=== PATIENT | male | born 1970 | race Asian ===

== ENCOUNTER 2019-05-28 17:41 | Observation (INO) | payer OTHER ==
--- NOTE | 2019-05-28 18:13 | ER ---
Nurse's Notes [facility] Name: Mehran Groves Age: 48 yrs Sex: Male : 1970 Arrival Date: 05/28/2019 Time: 17:42 Bed 8 Private MD: Diagnosis: Chest pain, unspecified;Essential (primary) hypertension;Elevated white blood cell count Presentation: 05/28 17:54 Presenting complaint: Patient states: left sided chest pain that started after climbing iw stairs, pain was 10/10 at worst, sharp, lasted about 45 min, then turned into a dull ache that lasted about 15 minutes, now feels tightness in left side of chest, rates at 3/10, also was feeling light headed, and noticed his left arm started feeling numb/tingly/weak a short while after the chest pain started at approx 1640. Transition of care: patient was not received from another setting of care. Onset of symptoms was May 28, 2019. Risk Assessment: Do you want to hurt yourself or someone else? Patient reports no desire to harm self or others. Initial Sepsis Screen: Does the patient meet any 2 criteria? No. Patient's initial sepsis screen is negative. Does the patient have a suspected source of infection? No. Patient's initial sepsis screen is negative. Care prior to arrival: None. 17:54 Method Of Arrival: Wheelchair 17:54 Acuity: YAKELIN 2 iw Triage Assessment: 18:00 General: Appears in no apparent distress. comfortable, Behavior is calm, cooperative, bp appropriate for age. Pain: Complains of pain in chest. EENT: No deficits noted. Neuro: No deficits noted. Cardiovascular: No deficits noted. Respiratory: Airway is patent Respiratory effort is even, unlabored, Respiratory pattern is regular, symmetrical. GI: No signs and/or symptoms were reported involving the gastrointestinal system. : No signs and/or symptoms were reported regarding the genitourinary system. Derm: No deficits noted. Musculoskeletal: No deficits noted. Historical: - Allergies: 18:00 Allopurinol; iw - Home Meds: 18:00 None [Active]; iw - PMHx: 18:00 CLL; iw - PSHx: 18:00 Appendectomy; iw - Immunization history:: Adult Immunizations up to date. - Social history:: Smoking status: Patient/guardian denies using tobacco. - Ebola Screening: : Patient negative for fever greater than or equal to 101.5 degrees Fahrenheit, and additional compatible Ebola Virus Disease symptoms Patient denies exposure to infectious person Patient denies travel to an Ebola-affected area in the 21 days before illness onset No symptoms or risks identified at this time. - Family history:: not pertinent. Screenin:59 Abuse screen: Denies threats or abuse. Denies injuries from another. Nutritional bp screening: No deficits noted. Tuberculosis screening: No symptoms or risk factors identified. Fall Risk None identified. Assessment: 18:10 General: SEE TRIAGE NOTE. Pain: Pain does not radiate. Pain began 1 day ago. bp Cardiovascular: Rhythm is sinus rhythm. 18:58 Reassessment: PER MD, ADMIT ON HOLD PENDING LAB RESULTS. bp 19:16 Reassessment: Patient and/or family updated on plan of care and expected duration. Pain tr5 level reassessed. Patient is alert, oriented x 3, equal unlabored respirations, skin warm/dry/pink. 20:17 Reassessment: Patient and/or family updated on plan of care and expected duration. Pain tr5 level reassessed. Patient is alert, oriented x 3, equal unlabored respirations, skin warm/dry/pink. Vital Signs: 18:00 BP 137 / 99; Pulse 86; Resp 16; Temp 98.2; Pulse Ox 99% on R/A; Weight 72.57 kg; Height iw 5 ft. 9 in. (175.26 cm); Pain 3/10; 19:18 BP 144 / 93; Pulse 85; Resp 16; Pulse Ox 99% on R/A; tr5 18:00 Body Mass Index 23.63 (72.57 kg, 175.26 cm) NIH Stroke Scale Scores: 18:06 NIHSS Score: 0 [facility] ED Course: 17:42 Patient arrived in ED. as 17:53 Michel Claudio MD is Attending Physician. bebeto 17:56 EKG done, by outside plant technician. reviewed by Michel Claudio MD. 3 17:58 Triage completed. iw 18:00 Arm band placed on. iw 18:11 Delfino Mcgregor, RN is Primary Nurse. bp 18:11 Viri Pascal MD is Hospitalizing Provider. bebeto 18:24 XRAY Chest (1 view) In Process Unspecified. EDMS 18:26 Initial lab(s) drawn, by me, sent to lab. Inserted saline lock: 20 gauge in right em1 antecubital area, using aseptic technique. Blood collected. Missed attempt(s): 20 gauge in right forearm. Bleeding controlled, band aid applied, catheter tip intact. 18:59 Patient has correct armband on for positive identification. Bed in low position. Call bp light in reach. Side rails up X2. Adult w/ patient. motorized squad lieutenant on. Pulse ox on. NIBP on. 19:16 Awaiting lab results. tr5 19:16 Report received from Delfino RAYGOZA. motorized squad lieutenant on. Pulse ox on. NIBP on. Door closed. tr5 Noise minimized. Assisted to bathroom. 20:17 transfer transportation to receiving facility. tr5 20:17 No provider procedures requiring assistance completed. Patient admitted, IV remains in tr5 place. Patient maintains SpO2 saturation greater than 95% on room air. 20:17 Report given to Michelle RAYGOZA. tr5 Administered Medications: 18:35 Drug: NS 0.9% 1000 ml Route: IV; Rate: 125 ml/hr; Site: right antecubital; bp 19:02 Follow up: IV Status: Infusion continued upon admission bp 18:35 Drug: Aspirin 162 mg Route: PO; bp 19:02 Follow up: Response: No adverse reaction bp 18:35 Drug: Lopressor (metoprolol TARTRATE) 50 mg Route: PO; bp 19:03 Follow up: Response: No adverse reaction bp 20:11 Drug: Lovenox 1 mg/kg Route: Sub-Q; Site: abdomen; tr5 20:29 Follow up: Response: No adverse reaction tr5 20:11 Drug: Pepcid 20 mg Route: IVP; Site: right antecubital; tr5 20:29 Follow up: Response: Marked relief of symptoms tr5 Outcome: 18:12 Decision to Hospitalize by Provider. bebeto 20:17 Admitted to Med/surg accompanied by tech, via wheelchair, with chart, Report called to tr5 Michelle RAYGOZA 20:17 Condition: stable 20:17 Instructed on the need for admit. 20:55 Patient left the ED. tr5 NIH Stroke Scale - NIH Stroke Score Date: 05/28/2019 Time: 18:06 Total Score = 0 1a. Level of Consciousness (LOC) - 0(Alert) 1b. Level of Consciousness (LOC) (Year \T\ Age) - 0(Both) 1c. LOC Commands (Open \T\ Closes Eyes/Obstetrician Gynecologist) - 0(Both) 2. Best Gaze (Lateral Gaze Paresis) - 0(Normal) 3. Visual Field Loss - 0(No visual loss) 4. Facial Palsy - 0(Normal) 5a. Left Arm: Motor (10-second hold) - 0(No drift) 5b. Right Arm: Motor (10-second hold) - 0(No drift) 6a. Left Leg: Motor (5-second hold - always test supine) - 0(No drift) 6b. Right Leg: Motor (5-second hold - always test supine) - 0(No drift) 7. Limb Ataxia (finger/nose \T\ heel/renteria - test with eyes open) - 0(Absent) 8. Sensory Loss (pinprick arms/legs/face) - 0(Normal) 9. Best Language: Aphasia (description/naming/reading) - 0(No aphasia) 10. Dysarthria (speech clarity - read or repeat words) - 0(Normal) 11. Extinction and Inattention (visual/tactile/auditory/spatial/personal) - 0(No abnormality) Initials: bebeto Signatures: Dispatcher [employer] EDMichel Gilbert MD MD cha Martinez, Amelia as Williams, Irene, RN Miki Davis em1 Delfino Mcgregor, Francia Cazares RN 3 Filiberto Mcdermott RN RN tr5
--- NOTE | 2019-05-28 18:14 | EDPHYS ---
Physician Documentation [facility] Name: Mehran Groves Age: 48 yrs Sex: Male : 1970 Arrival Date: 05/28/2019 Time: 17:42 Bed 8 Private MD: ED Physician Michel Claudio HPI: 05/28 18:06 This 48 yrs old Male presents to ER via Wheelchair with complaints of Chest Pain. bebeto 18:06 The patient or guardian reports chest pain that is located primarily in the substernal bebeto area. Onset: just prior to arrival. The pain radiates to the left arm. Associated signs and symptoms: The patient has no apparent associated signs or symptoms. The chest pain is described as a pressure. Duration: The patient or guardian reports a single episode, that is now resolved. Severity of pain: At its worst the pain was mild moderate in the emergency department the pain has resolved. The patient has experienced similar episodes in the past, a few times. Historical: - Allergies: 18:00 Allopurinol; iw - Home Meds: 18:00 None [Active]; iw - PMHx: 18:00 CLL; iw - PSHx: 18:00 Appendectomy; iw - Immunization history:: Adult Immunizations up to date. - Social history:: Smoking status: Patient/guardian denies using tobacco. - Ebola Screening: : Patient negative for fever greater than or equal to 101.5 degrees Fahrenheit, and additional compatible Ebola Virus Disease symptoms Patient denies exposure to infectious person Patient denies travel to an Ebola-affected area in the 21 days before illness onset No symptoms or risks identified at this time. - Family history:: not pertinent. ROS: 18:06 Constitutional: Negative for fever, chills, and weight loss, Eyes: Negative for injury, bebeto pain, redness, and discharge, ENT: Negative for injury, pain, and discharge, Neck: Negative for injury, pain, and swelling, Respiratory: Negative for shortness of breath, cough, wheezing, and pleuritic chest pain, Abdomen/GI: Negative for abdominal pain, nausea, vomiting, diarrhea, and constipation, Back: Negative for injury and pain, : Negative for injury, bleeding, discharge, and swelling, MS/Extremity: Negative for injury and deformity, Skin: Negative for injury, rash, and discoloration, Neuro: Negative for headache, weakness, numbness, tingling, and seizure, Psych: Negative for depression, anxiety, suicide ideation, homicidal ideation, and hallucinations, Allergy/Immunology: Negative for hives, rash, and allergies, Endocrine: Negative for neck swelling, polydipsia, polyuria, polyphagia, and marked weight changes, Hematologic/Lymphatic: Negative for swollen nodes, abnormal bleeding, and unusual bruising. 18:06 Cardiovascular: Positive for chest pain, of the chest. Exam: 18:06 Constitutional: This is a well developed, well nourished patient who is awake, alert, bebeto and in no acute distress. Head/Face: Normocephalic, atraumatic. Eyes: Pupils equal round and reactive to light, extra-ocular motions intact. Lids and lashes normal. Conjunctiva and sclera are non-icteric and not injected. Cornea within normal limits. Periorbital areas with no swelling, redness, or edema. ENT: Nares patent. No nasal discharge, no septal abnormalities noted. Tympanic membranes are normal and external auditory canals are clear. Oropharynx with no redness, swelling, or masses, exudates, or evidence of obstruction, uvula midline. Mucous membranes moist. Neck: Trachea midline, no thyromegaly or masses palpated, and no cervical lymphadenopathy. Supple, full range of motion without nuchal rigidity, or vertebral point tenderness. No Meningismus. Chest/axilla: Normal chest wall appearance and motion. Nontender with no deformity. No lesions are appreciated. Cardiovascular: Regular rate and rhythm with a normal S1 and S2. No gallops, murmurs, or rubs. Normal PMI, no JVD. No pulse deficits. Respiratory: Lungs have equal breath sounds bilaterally, clear to auscultation and percussion. No rales, rhonchi or wheezes noted. No increased work of breathing, no retractions or nasal flaring. Abdomen/GI: Soft, non-tender, with normal bowel sounds. No distension or tympany. No guarding or rebound. No evidence of tenderness throughout. Back: No spinal tenderness. No costovertebral tenderness. Full range of motion. Male : Normal genitalia with no discharge or lesions. Skin: Warm, dry with normal turgor. Normal color with no rashes, no lesions, and no evidence of cellulitis. MS/ Extremity: Pulses equal, no cyanosis. Neurovascular intact. Full, normal range of motion. Neuro: Awake and alert, GCS 15, oriented to person, place, time, and situation. Cranial nerves II-XII grossly intact. Motor strength 5/5 in all extremities. Sensory grossly intact. Cerebellar exam normal. Normal gait. Psych: Awake, alert, with orientation to person, place and time. Behavior, mood, and affect are within normal limits. 18:06 Musculoskeletal/extremity: DVT Exam: No signs of deep vein thrombosis. no pain, no swelling, no tenderness, negative Homans' sign noted on exam, no appreciated bluish discoloration, no erythema, no increased warmth. Vital Signs: 18:00 BP 137 / 99; Pulse 86; Resp 16; Temp 98.2; Pulse Ox 99% on R/A; Weight 72.57 kg; Height iw 5 ft. 9 in. (175.26 cm); Pain 3/10; 19:18 BP 144 / 93; Pulse 85; Resp 16; Pulse Ox 99% on R/A; tr5 18:00 Body Mass Index 23.63 (72.57 kg, 175.26 cm) NIH Stroke Scale Scores: 18:06 NIHSS Score: 0 bebeto MDM: 17:53 Patient medically screened. [facility] 18:09 Data reviewed: vital signs, nurses notes, lab test result(s), EKG, radiologic studies, bebeto plain films. 05/28 18:05 Order name: Basic Metabolic Panel; Complete Time: 19:04 [facility] 05/28 18:05 Order name: CBC with Diff [facility] 05/28 18:05 Order name: LFT's; Complete Time: 19:04 [facility] 05/28 18:05 Order name: Magnesium; Complete Time: 19:04 [facility] 05/28 18:05 Order name: NT PRO-BNP; Complete Time: 19:04 [facility] 05/28 18:05 Order name: PT-INR [facility] 05/28 18:05 Order name: Troponin (emerg Dept Use Only); Complete Time: 19:04 [facility] 05/28 18:05 Order name: Lipase; Complete Time: 19:04 [facility] 05/28 18:36 Order name: Lipid Profile [facility] 05/28 18:36 Order name: Lipid Profile [facility] 05/28 18:36 Order name: Troponin I [facility] 05/28 18:36 Order name: Troponin I [facility] 05/28 18:37 Order name: Troponin I [facility] 05/28 19:31 Order name: Urine Dipstick--Ancillary (enter results) 2 05/28 18:05 Order name: XRAY Chest (1 view); Complete Time: 19:04 [facility] 05/28 18:05 Order name: EKG; Complete Time: 18:09 [facility] 05/28 18:05 Order name: Cardiac monitoring; Complete Time: 18:32 [facility] 05/28 18:05 Order name: EKG - Nurse/Tech; Complete Time: 18:25 [facility] 05/28 18:37 Order name: CONS Physician Consult [facility] 05/28 18:37 Order name: Heart Healthy [facility] 05/28 18:37 Order name: Echo with Doppler [facility] 05/28 18:37 Order name: EKG Electrocardiogram [facility] 05/28 18:37 Order name: EKG Electrocardiogram [facility] 05/28 19:35 Order name: Urine Dipstick-Ancillary [facility] 05/28 19:47 Order name: Manual Differential [facility] 05/28 18:05 Order name: IV Saline Lock; Complete Time: 18:25 [facility] 05/28 18:05 Order name: Labs collected and sent; Complete Time: 18:25 [facility] 05/28 18:05 Order name: O2 Per Protocol; Complete Time: 18:32 [facility] 05/28 18:05 Order name: O2 Sat Monitoring; Complete Time: 18:32 [facility] 05/28 18:05 Order name: Urine Dipstick-Ancillary (obtain specimen); Complete Time: 19:18 [facility] Administered Medications: 18:35 Drug: NS 0.9% 1000 ml Route: IV; Rate: 125 ml/hr; Site: right antecubital; bp 19:02 Follow up: IV Status: Infusion continued upon admission bp 18:35 Drug: Aspirin 162 mg Route: PO; bp 19:02 Follow up: Response: No adverse reaction bp 18:35 Drug: Lopressor (metoprolol TARTRATE) 50 mg Route: PO; bp 19:03 Follow up: Response: No adverse reaction bp 20:11 Drug: Lovenox 1 mg/kg Route: Sub-Q; Site: abdomen; tr5 20:29 Follow up: Response: No adverse reaction tr5 20:11 Drug: Pepcid 20 mg Route: IVP; Site: right antecubital; tr5 20:29 Follow up: Response: Marked relief of symptoms tr5 Disposition: 05/28/19 18:12 Hospitalization ordered by Viri Pascal for Observation. Preliminary diagnosis are Chest pain, unspecified, Essential (primary) hypertension, Elevated white blood cell count. - Bed requested for Telemetry/MedSurg (observation). - Status is Observation. tr5 - Condition is Stable. - Problem is new. - Symptoms have improved. UTI on Admission? No NIH Stroke Scale - NIH Stroke Score Date: 05/28/2019 Time: 18:06 Total Score = 0 1a. Level of Consciousness (LOC) - 0(Alert) 1b. Level of Consciousness (LOC) (Year \T\ Age) - 0(Both) 1c. LOC Commands (Open \T\ Closes Eyes/Government Relations Analyst) - 0(Both) 2. Best Gaze (Lateral Gaze Paresis) - 0(Normal) 3. Visual Field Loss - 0(No visual loss) 4. Facial Palsy - 0(Normal) 5a. Left Arm: Motor (10-second hold) - 0(No drift) 5b. Right Arm: Motor (10-second hold) - 0(No drift) 6a. Left Leg: Motor (5-second hold - always test supine) - 0(No drift) 6b. Right Leg: Motor (5-second hold - always test supine) - 0(No drift) 7. Limb Ataxia (finger/nose \T\ heel/renteria - test with eyes open) - 0(Absent) 8. Sensory Loss (pinprick arms/legs/face) - 0(Normal) 9. Best Language: Aphasia (description/naming/reading) - 0(No aphasia) 10. Dysarthria (speech clarity - read or repeat words) - 0(Normal) 11. Extinction and Inattention (visual/tactile/auditory/spatial/personal) - 0(No abnormality) Initials: bebeto Signatures: Dispatcher [employer] EDMS Marielena Mann Corey, MD MD cha Williams, Irene, RN RN iw Peltier, Brian, RN RN bp Rodriguez, Tommie, RN RN tr5 Corrections: (The following items were deleted from the chart) 18:50 18:12 Hospitalization Ordered by Viri Pascal MD for Observation. Preliminary bd diagnosis is Chest pain, unspecified; Essential (primary) hypertension. Bed requested for Telemetry/MedSurg (observation). Status is Observation. Condition is Stable. Problem is new. Symptoms have improved. UTI on Admission? No. bebeto 19:17 18:50 05/28/2019 18:12 Hospitalization Ordered by Viri Pascal MD for bebeto Observation. Preliminary diagnosis is Chest pain, unspecified; Essential (primary) hypertension. Bed requested for Telemetry/MedSurg (observation). Status is Observation. Condition is Stable. Problem is new. Symptoms have improved. UTI on Admission? No. bd 20:55 19:17 05/28/2019 18:12 Hospitalization Ordered by Viri Pascal MD for tr5 Observation. Preliminary diagnosis is Chest pain, unspecified; Essential (primary) hypertension; Elevated white blood cell count. Bed requested for Telemetry/MedSurg (observation). Status is Observation. Condition is Stable. Problem is new. Symptoms have improved. UTI on Admission? No. bebeto
[2019-05-28] MEDS ORDERED: ACETAMINOPHEN 500 MG TAB PO PRN (18:30)
[2019-05-28] MEDS ORDERED: ALPRAZOLAM 0.25 MG TABLET PO PRN (18:30)
[2019-05-28] MEDS ORDERED: MORPHINE 4 MG/ML SYR IV PRN (18:30)
[2019-05-28 18:32] LABS: Basophils % 0.6 % (0-1.3); Hematocrit 47.5 % (39.6-49.0); MPV 9.7 fL (7.6-11.3); RBC Red Blood Cell Count 5.46 M/uL (4.33-5.43)
--- NOTE | 2019-05-28 18:32 | RAD REPORT ---
EXAM DESCRIPTION: Jake Single View05/28/2019 6:24 pm CLINICAL HISTORY: Chest pain COMPARISON: none FINDINGS: The lungs appear clear of acute infiltrate. The heart is normal size IMPRESSION: No acute abnormalities displayed
[2019-05-28 18:54] LABS: ALT/SGPT 43 U/L (12-78); AST/SGOT 14 U/L (15-37); Albumin 4.6 g/dL (3.4-5.0); Alkaline Phosphatase 64 U/L (45-117); BUN Blood Urea Nitrogen 20 mg/dL (7-18); Bicarbonate 29 mmol/L (21-32); Bilirubin Direct 0.2 mg/dL (0-0.2); Bilirubin Total 0.7 mg/dL (0.2-1.0); Glucose Level 95 mg/dL (74-106); Lipase 127 U/L (73-393); Magnesium 2.2 mg/dL (1.8-2.4); NT PRO-BNP 17 pg/mL (<125); Potassium 4.2 mmol/L (3.5-5.1); Protein, Total 7.3 g/dL (6.4-8.2); Sodium Level 142 mmol/L (136-145); Troponin (Emerg Dept Use Only) < 0.02 ng/mL (0.0-0.045)
[2019-05-28] MEDS ORDERED: ASPIRIN 81 MG CHEWABLE TABLET ONE (18:56)
[2019-05-28] MEDS ORDERED: NA CHLORIDE 0.9% 1,000 ML ONE (18:56)
[2019-05-28 19:25] LABS: Protime INR 0.96
[2019-05-28 19:34] LABS: Urine Blood NEGATIVE (NEG); Urine Glucose NEGATIVE (NEG); Urine Protein NEGATIVE (NEG); Urine Specific Gravity 1.025 (1.005-1.030)
[2019-05-28 19:44] LABS: Platelet Estimate DECR
[2019-05-28 19:46] LABS: Blood Morphology Comment NOT SEEN (NOT SEEN)
[2019-05-28] MEDS ORDERED: ENOXAPARIN 80 MG/0.8 ML SQ ONE (20:19)
[2019-05-28] MEDS ORDERED: FAMOTIDINE 20 MG/2 ML VIAL IV ONE (20:20)
[2019-05-28] MEDS: METOPROLOL TAR 50 MG TAB PO SCH (21:00)
[2019-05-29] MEDS: METOPROLOL TAR 50 MG TAB PO SCH (08:32)
[2019-05-29] MEDS ORDERED: ASPIRIN EC 81 MG TAB PO SCH (09:00)
[2019-05-29] MEDS ORDERED: ENOXAPARIN 40 MG/0.4 ML SQ SCH (09:00)
--- NOTE | 2019-05-29 11:58 | P.SSS ---
Patient History Date of Service: 05/29/19 History of Present Illness: This is a 48-year-old male with history of CLL, history of Pia's syndrome, admitted for chest pain rule out. Patient stated that there was a sharp pain that was started while walking up the stairs the day of admission. Described it as a dull pain that lasted for 15-20 min. Associated with left arm weakness. He states that he has a history of CLL, that was in remission. He is status post chemotherapy, not over 1 year ago. He says that he recently started oncologist 1-2 months ago and states that they think his CLL is returning. He will continue follow up with his oncologist in [place]. Cardiology was consulted for chest pain. His troponins remained negative x2. His chest x-ray was without any acute abnormalities. He states that he did see a sample maker hand 3 months ago in [place], with a negative exercise stress test at that time. Powertrain Design Engineer here cleared patient for discharge today and he will have an outpatient nuclear stress test in cardiology office. Per cardiology, they will have this set up this week prior to patient returning to [place]. Prior to discharge, patient was hemodynamically stable, his chest pain had resolved and he was in no acute distress. His diagnosis and treatment plan were explained to him, all questions were answered and patient verbalized understanding. Allergies allopurinol Adverse Reaction (Verified 05/28/19 21:20) Hives/Rash Home medications list reviewed: Yes Home Medications: NK [No Home Meds] 05/28/19 - Past Medical/Surgical History Has patient received pneumonia vaccine in the past: Yes Diabetic: No -: Leukemia -: Appendectomy - Family History Father History Unknown: Yes Mother -: Diabetes - Social History Smoking Status: Never smoker Alcohol use: No CD- Drugs: No Caffeine use: No Place of Residence: Home Review of Systems 10-point ROS is otherwise unremarkable Physical Examination - Vital Signs Temperature: 97.8 F Blood Pressure: 114/73 Pulse: 74 Respirations: 14 Pulse Ox (%): 96 - Physical Exam General: Alert, In no apparent distress, Oriented x3 HEENT: Atraumatic, PERRLA, Mucous membr. moist/pink, EOMI, Sclerae nonicteric Neck: Supple, 2+ carotid pulse no bruit, No LAD, Without JVD or thyroid abnormality Respiratory: Clear to auscultation bilaterally, Normal air movement Cardiovascular: Regular rate/rhythm, Normal S1 S2 Gastrointestinal: Normal bowel sounds, No tenderness Musculoskeletal: No tenderness Integumentary: No rashes Neurological: Normal gait, Normal speech, Normal strength at 5/5 x4 extr, Normal tone, Normal affect Lymphatics: No axilla or inguinal lymphadenopathy - Studies Laboratory Data (last 24 hrs) 05/28/19 18:20: PT 11.4, INR 0.96 05/28/19 18:20: WBC 17.2 H, Hgb 16.0, Hct 47.5, Plt Count 136 L 05/28/19 18:20: Sodium 142, Potassium 4.2, BUN 20 H, Creatinine 1.10, Glucose 95 , Magnesium 2.2, Total Bilirubin 0.7, AST 14 L, ALT 43, Alkaline Phosphatase 64 , Lipase 127 Treatment Summary: See HPI - Disposition Discharge Date: 05/29/19 Disposition: ROUTINE DISCHARGE Condition: GOOD Consultations: Cardiology Patient Discharge Instructions: Please follow up with cardiology within this week. Powertrain Design Engineer office will be calling you to set up outpatient testing. Please return to the emergency room for worsening symptoms Diet: AHA Activity: Ad jordin Time Spent Managing Pts Care (In Minutes): 45
--- NOTE | 2019-05-29 13:35 | EKG ---
Test Date: 2019-05-29 Test Time: 08:04:17 Mailing Machine Operator: NAVEEN MEASUREMENT RESULTS: Intervals: Rate: 79 LA: 148 QRSD: 88 QT: 370 QTc: 424 [place] [facility]: P: 69 LA: 148 QRS: 87 T: 45 INTERPRETIVE STATEMENTS: Normal sinus rhythm Normal ECG Compared to ECG 05/28/2019 17:54:08 No significant changes Electronically Signed On 05-29-19 13:34:00 CDT by Scottie Ovalles
--- NOTE | 2019-05-29 13:38 | EKG ---
Test Date: 2019-05-28 Test Time: 17:54:08 Car Installations Supervisor: NAVEEN MEASUREMENT RESULTS: Intervals: Rate: 88 ID: [id number] QRSD: 84 QT: 356 QTc: 430 [place]: P: 60 ID: [id number] QRS: 84 T: 21 INTERPRETIVE STATEMENTS: Normal sinus rhythm Normal ECG No previous ECG available for comparison Electronically Signed On 05-29-19 13:34:22 CDT by Scottie Ovalles
--- NOTE | 2019-05-29 21:41 | P.HP ---
Certification for Inpatient Patient admitted to: Observation With expected LOS: <2 Midnights Patient will require the following post-hospital care: None Practitioner: I am a practitioner with admitting privileges, knowledge of patient current condition, hospital course, and medical plan of care. Services: Services provided to patient in accordance with Admission requirements found in Title 42 Section 412.3 of the Code of Federal Regulations Patient History Date of Service: 05/28/19 Reason for admission: chest pain rule out acute coronary syndrome History of Present Illness: Patient is a 48-year-old gentleman with a history of CLL who came into the hospital with chest pain. Pain was mainly the sternal region. It was sharp and he became somewhat short of breath. Because of his multiple medical issues he decided to come into the hospital for further evaluation. He has had stress test done in the last 6 months. He said it is because he has been having recurring chest pain since he has been weaned off of the steroids. This was for treatment of his CLL. He is in the emergency room for further evaluation. Allergies allopurinol Adverse Reaction (Verified 05/28/19 21:20) Hives/Rash Home Medications: NK [No Home Meds] 05/28/19 - Past Medical/Surgical History Has patient received pneumonia vaccine in the past: Yes Diabetic: No -: CLL -: Appendectomy - Family History Father History Unknown: Yes Mother Medical History: Diabetes - Social History Smoking Status: Never smoker Alcohol use: No CD- Drugs: No Caffeine use: No Place of Residence: Home Review of Systems 10-point ROS is otherwise unremarkable Physical Examination - Vital Signs Temperature: 98.6 F Blood Pressure: 115/72 Pulse: 68 Respirations: 14 Pulse Ox (%): 96 - Physical Exam General: Alert, In no apparent distress, Oriented x3 HEENT: Atraumatic, PERRLA, Mucous membr. moist/pink, EOMI, Sclerae nonicteric Neck: Supple, 2+ carotid pulse no bruit, No LAD, Without JVD or thyroid abnormality Respiratory: Clear to auscultation bilaterally, Normal air movement Cardiovascular: Regular rate/rhythm, Normal S1 S2, No rubs, No murmurs Gastrointestinal: Normal bowel sounds, Soft and benign, Non-distended, No tenderness Musculoskeletal: No clubbing, No swelling, No tenderness Integumentary: No rashes Neurological: Normal gait, Normal speech, Normal strength at 5/5 x4 extr, Normal tone, Sensation intact, Cranial nerves 3-12 intact, Normal affect Lymphatics: No axilla or inguinal lymphadenopathy Assessment & Plan - Problems (Diagnosis) (1) Chest pain, rule out acute myocardial infarction Status: Acute (2) History of chronic lymphocytic leukemia Status: Acute - Plan 1. Serial troponins and EKG 2. Cardiology consultation 3. Echocardiogram and pending cardiology evaluation 4. Anti-platelet therapy, anti coagulation, beta-geovani, statin, and O2 as needed 5. IV morphine for pain 6. Nitro p.r.n. Discharge Plan: Home Plan to discharge in: 24 Hours - Advance Directives Does patient have a Living Will: No Does patient have a Durable POA for Healthcare: No - Code Status/Comfort Care Code Status Assessed: Yes Code Status: Full Code Critical Care: No Time Spent Managing PTS Care (In Minutes): 40
--- NOTE | 2019-05-30 10:57 | CON ---
Date of Consultation: 05/29/2019 Reason For Consultation: Chest pain. History Of Present Illness: Mr. Groves is a 48-year-old male without any significant past cardiac history. He has a history of chronic lymphocytic leukemia. He has a white count of about 17,000. He is not undergoing therapy at this point. He is visiting from [place]. [place] the beach and got dehydrated and as he was climbing some stairs, he developed some upper left chest pain that radi ated to his left arm with some diaphoresis, shortness of breath, but no nausea or vomiting. Symptoms lasted for about 2 hours. No PND, orthopnea, pedal edema, palpitations, or syncope. He was already ruled out for an WI. He has had normal chest x-ray, EKG, and troponin. Past Medical History: CLL. Allergies: ALLOPURINOL. Medications: At home are none. Review of Systems: Negative. Social History: Negative. Family History: Negative. Physical Examination: Vital Signs: Stable. He was afebrile. HEENT: Negative. Neck: Supple with no bruit. Chest: Clear to auscultation and percussion. Cardiac: Regular rhythm and rate. No murmurs, gallops, or rubs. Abdomen: Benign. Extremities: No clubbing, cyanosis, or edema. Diagnostic Data: As stated earlier. Impression And Plan: 1.Atypical chest pain. 2.History of chronic lymphocytic leukemia. 3.Allergy to allopurinol. 4.Elevated white count secondary to chronic lymphocytic leukemia. Echocardiogram that was done befo re I saw him, showed normal ejection fraction. No wall motion abnormalities. No effusion. His symp toms are concerning enough as far as his chest pain is concerned, but I think he needs to have a stre ss test and I can make arrangements for that as an outpatient in the near future. He can certainly g o home whenever it is okay with Dr. Pascal. SEAN/FOREST Voice ID: [id number] Report ID: [id number]
== END 2019-05-29 14:08 | disposition home or self-care (01) ==
LOC: ER 17:41 → ERHOLD 18:30 → 2ND 20:44
PROVIDERS: ADMIT Hospitalist; ATTEND Family Medicine
DX: R07.89 Other chest pain (principal); D72.829 Elevated white blood cell count, unspecified; I10 Essential (primary) hypertension; I24.1 Dressler's syndrome; Z85.6 Personal history of leukemia; Z88.8 Allergy status to other drugs, medicaments and biological substances; Z92.21 Personal history of antineoplastic chemotherapy
CPT/HCPCS: 36415; 71045; 80048; 80061; 80076; 81003; 83690; 83735; 83880; 84484; 85025; 85610; 93005; 96372; 96374; 99285; G0378; J1650; J7030